=== PATIENT | male | born 1985 | race American Indian/Alaskan Native ===

== ENCOUNTER → 2020-01-11 | Outpatient (CLI) | payer OTHER ==
--- NOTE | 2020-01-13 12:03 | MR ---
EXAMINATION TYPE: MR knee LT wo con DATE OF EXAM: 01/11/2020 COMPARISON: NONE HISTORY: Lt knee pain, Hx of multiple injuries over the years per prescription. Pain locking and swel ling in both knees for 2.5 months per patient. TECHNIQUE: Multiplanar, multisequence images of the knee is performed without IV contrast. FINDINGS: MEDIAL MENISCUS: Anterior horn is intact without tear. Oblique increased signal posterior horn extend s to inferior articular surface. LATERAL MENISCUS: Anterior and posterior horns are intact without tear. CRUCIATE LIGAMENTS: The anterior and posterior cruciate ligaments are intact and unremarkable. COLLATERAL LIGAMENTS: The medial collateral ligament and lateral collateral ligament complex are inta ct and unremarkable. EXTENSOR MECHANISM: Visualized quadriceps and patellar tendons are intact. EFFUSION: Small suprapatellar joint effusion. POPLITEAL CYST: No popliteal/gonzales cyst. TRICOMPARTMENT SPACES: Tricompartment joint space is fairly well-maintained. No significant spurring is seen. CARTILAGE: Tricompartment articular cartilage is preserved. BONE MARROW SIGNAL: No focal abnormal marrow signal is appreciated. OTHER: No additional significant abnormality is appreciated. IMPRESSION: 1. Full-thickness tear posterior horn medial meniscus. 2. Mild tricompartment degenerative changes as detailed above. 3. Small suprapatellar joint effusion.
== END | disposition home or self-care (01) ==
LOC: RADMRIMAIN 16:23
PROVIDERS: ATTEND Physician Assistant
DX: S83.242A Other tear of medial meniscus, current injury, left knee, initial encounter (principal); M17.12 Unilateral primary osteoarthritis, left knee

== ENCOUNTER → 2020-03-13 | Outpatient (CLI) | payer OTHER ==
[2020-03-13 11:35] LABS: Basophils # (A) 0.1 k/uL (0-0.2); Basophils % (A) 1 %; Eosinophils # (A) 0.2 k/uL (0-0.7); Eosinophils % (A) 3 %; HCT 45.8 % (39.0-53.0); HGB 14.9 gm/dL (13.0-17.5); Lymphocytes # (A) 1.6 k/uL (1.0-4.8); Lymphocytes % (A) 31 %; MCH 30.2 pg (25.0-35.0); MCHC 32.5 g/dL (31.0-37.0); MCV 92.7 fL (80.0-100.0); Mean Platelet Volume 7.1; Monocytes # (A) 0.4 k/uL (0-1.0); Monocytes % (A) 8 %; Neutrophils # (A) 2.8 k/uL (1.3-7.7); Neutrophils % (A) 56 %; Platelet Count 293 k/uL (150-450); RBC 4.95 m/uL (4.30-5.90); RDW 12.6 % (11.5-15.5); WBC 5.1 k/uL (3.8-10.6)
[2020-03-13 11:53] LABS: Potassium 4.6 mmol/L (3.5-5.1)
== END | disposition home or self-care (01) ==
LOC: LABPAT 10:09
PROVIDERS: ATTEND Orthopaedic Surgery
DX: Z01.818 Encounter for other preprocedural examination (principal); M23.92 Unspecified internal derangement of left knee
CPT/HCPCS: 36415; 80051; 85025

== ENCOUNTER 2020-03-21 07:30 | Day surgery (SDC) | payer OTHER ==
[2020-03-19 14:07] VITALS: BMI 22.4
--- NOTE | 2020-03-20 09:22 | HP ---
HISTORY AND PHYSICAL CHIEF COMPLAINT: Left knee pain. 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 He twisted his knee and felt a pop. He has had pain and swelling ever since. He notes his knee gives out on him. He has tried anti- inflammatories without much relief. He notes it limits him daily. PAST MEDICAL HISTORY: Significant for anxiety/depression, PTSD. PAST SURGICAL HISTORY: Significant for right shoulder surgery. CURRENT MEDICATIONS: Adderall, hydroxyzine and [place]. He denies drug allergies. FAMILY HISTORY: Significant for cancer. SOCIAL HISTORY: Significant for half pack per day tobacco use. 16 POINT REVIEW OF SYSTEMS: Otherwise reviewed and is noncontributory. PHYSICAL EXAMINATION: On examination, the patient is approximately 6 foot 1, 165 pounds of mesomorphic habitus. HEENT exam is nonfocal. NECK: Supple He has painless passive motion of his left hip. Straight leg raise is negative. Active motion left knee -10 to 125 degrees of flexion. He has a trace effusion. He is tender about the medial joint line and medial patellar facet. Collaterals are stable, Hanna is negative, Erick's elicits medial pain. His distal neurovascular exam appears intact in the left lower extremity. MRI report 01/11/2020 of the left knee shows a posterior medial meniscal tear. IMPRESSION: Internal derangement, left knee with symptomatic medial meniscal tear. RECOMMENDATION: I talked to the patient at length regarding his condition along with treatment options. He notes significant pain and mechanical symptoms after this acute injury. After thorough discussion, he opts to proceed with surgery. We will plan to proceed with arthroscopic evaluation with probable partial medial meniscectomy. We will likely perform that as an outpatient procedure. Risks and benefits were discussed at length in layman's terms. MMODL / IJN: [id number] /
[~2020-03-21 07:30] MED LIST: DEXAMETHASONE SOD PHOSPHATE 10 MG/ML 1 ML VIAL IV ONE; LIDOCAINE 1% (10MG/ML) FOR IV START INTRADERMA PRN; MIDAZOLAM 2 MG/2 ML VIAL IV PRN; ONDANSETRON 4 MG/2 ML VIAL IVP ONE
[2020-03-21] MEDS: LACTATED RINGERS 1,000 ML IV SCH ×2 (08:34→09:19)
[2020-03-21] MEDS ORDERED: FLUMAZENIL 0.1 MG/ML 5 ML VIAL IVP ONE (09:16)
[2020-03-21] MEDS ORDERED: MIDAZOLAM 2 MG/2 ML VIAL ONE (09:16)
[2020-03-21] MEDS ORDERED: LIDOCAINE 1% INJ 10MG/ML (20 ML MDV) ONE (09:16)
[2020-03-21] MEDS ORDERED: KETOROLAC 15 MG/ML 1 ML VIAL ONE (09:16)
[2020-03-21] MEDS ORDERED: fentaNYL (PF) 50 MCG/ML 2 ML AMP ONE (09:16)
[2020-03-21] MEDS ORDERED: PROPOFOL 10 MG/ML 20 ML VIAL IV ONE (09:16)
--- NOTE | 2020-03-21 09:57 | P.OP ---
Date of Procedure: 03/21/20 Preoperative Diagnosis: Internal derangement left knee Postoperative Diagnosis: Left knee posterior medial meniscal tear/large patellofemoral plica Procedure(s) Performed: Left knee arthroscopic partial medial meniscectomy/plica resection Anesthesia: BALDO Surgeon: David Peters Estimated Blood Loss (ml): 10 Pathology: none sent Condition: stable Disposition: PACU Indications for Procedure: The patient's a 35-year-old male presents with progressive left knee pain and mechanical symptoms after a previous twisting injury despite conservative treatment. A discussion of the risks and benefits of operative intervention versus continued conservative measures was made with patient. He opted proceed with surgery. Operative risks to include infection, neurovascular injury, development of blood clots, possible incomplete resolution of symptoms, possible worsening symptoms and need for subsequent procedures was discussed. Informed consent was obtained. Operative Findings: As below Description of Procedure: The patient was brought to the operating room, and after induction of general anesthesia examined the left knee. Collaterals were stable, Hanna was negative, and posterior drawer was negative. The left lower extremity was prepped and draped in a normal fashion. A superior lateral portal was made through a 3 mm skin incision superior and lateral to the patella. This was used for outflow. A lateral portal was made through a 5 mm vertical skin incision lateral to the patella tendon above the joint line. Diagnostic arthroscopy was performed. On inspection of the medial compartment, a small oblique tear involving the posterior most aspect the medial meniscus was noted in the white- white junction. This was debrided back to stable base with straight baskets and a motorized shaver. The remaining medial meniscus was stable and intact. On inspection of the notch, the anterior cruciate ligament appeared to be intact. On inspection of the lateral compartment, no significant cartilage or meniscal pathology was noted. On inspection of the patellofemoral articulation, there was a large medial patellofemoral plica that impinged. This was debrided with a motorized shaver.. The gutters were clear debris. The knee was then thoroughly irrigated. The portals were closed with Steri-Strips. A sterile dressing was applied in addition to a compression stocking. The patient was awoken from general anesthesia and transferred to recovery room in good condition. Blood loss was estimated at 10 mL. No complications were incurred.
[2020-03-21 10:15] VITALS: TEMP 96.8
[2020-03-21 11:22] VITALS: BP 125/80; PULSE 80; RESP 16
== END 2020-03-21 11:37 | disposition home or self-care (01) ==
LOC: OR 07:30
PROVIDERS: ATTEND Orthopaedic Surgery
DX: S83.242A Other tear of medial meniscus, current injury, left knee, initial encounter (principal); M67.52 Plica syndrome, left knee; F41.9 Anxiety disorder, unspecified; F32.9 Major depressive disorder, single episode, unspecified; F43.10 Post-traumatic stress disorder, unspecified; F17.210 Nicotine dependence, cigarettes, uncomplicated; I10 Essential (primary) hypertension; F90.9 Attention-deficit hyperactivity disorder, unspecified type; Z98.890 Other specified postprocedural states; Z79.899 Other long term (current) drug therapy; Z79.891 Long term (current) use of opiate analgesic; Z79.1 Long term (current) use of non-steroidal anti-inflammatories (NSAID); Z80.9 Family history of malignant neoplasm, unspecified; X50.1XXA Overexertion from prolonged static or awkward postures, initial encounter
CPT/HCPCS: 29881; J2250; J0690; J2001; J3010; J1885; J2704

== ENCOUNTER 2020-12-03 09:49 | Emergency (ER) | payer OTHER ==
[2020-12-03 09:53] VITALS: BP 126/83; PULSE 79; RESP 20; TEMP 97.6
--- NOTE | 2020-12-03 10:32 | ED ---
Upper Extremity HPI - General Chief Complaint: Extremity Injury, Upper Stated Complaint: L shoulder pain Time Seen by Provider: 12/03/20 10:02 Source: patient Mode of arrival: ambulatory Limitations: no limitations - History of Present Illness Initial Comments: Patient is a 35-year-old male presenting to the emergency Department with complaints of left shoulder pain for the past 4 days. Patient states that on Tuesday, he bent over to lemon picker his daughter and felt a pop in his left shoulder. He states he has been unable to lift up his shoulder much since then. He denies any previous surgeries or injuries to his left shoulder. He has left-hand dominant but does a lot of the things with his right hand. He denies any other falls or trauma. He has no further complaints at this time. - Related Data Home Medications Medication Instructions Recorded Confirmed DULoxetine HCL [Cymbalta] 30 mg PO DAILY 03/19/20 03/21/20 Dextroamphetamine/Amphetamine 20 mg PO DAILY 03/19/20 03/21/20 [Adderall] Ibuprofen 400 mg PO Q8H 03/19/20 03/21/20 Allergies Allergy/AdvReac Type Severity Reaction Status Date / Time No Known Allergies Allergy Verified 12/03/20 09:53 Review of Systems ROS Statement: Those systems with pertinent positive or pertinent negative responses have been documented in the HPI. ROS Other: All systems not noted in ROS Statement are negative. Past Medical History Past Medical History: No Reported History History of Any Multi-Drug Resistant Organisms: None Reported Past Surgical History: Joint Replacement, Orthopedic Surgery Past Psychological History: No Psychological Hx Reported Smoking Status: Current every day smoker Past Alcohol Use History: None Reported Past Drug Use History: None Reported General Exam - General Exam Comments Initial Comments: GENERAL: Patient is well-developed and well-nourished. Patient is nontoxic and in no acute distress. HEAD: Atraumatic, normocephalic. EYES: Pupils equal round and reactive to light, extraocular movements intact, sclera anicteric, conjunctiva are normal. Eyelids were unremarkable. NECK: Normal range of motion, supple without lymphadenopathy or JVD. LUNGS: Unlabored respirations. Breath sounds clear to auscultation bilaterally and equal. No wheezes rales or rhonchi. HEART: Regular rate and rhythm without murmurs, rubs or gallops. ABDOMEN: Soft, nontender, normoactive bowel sounds. No guarding, no rebound. No masses appreciated. MUSCULOSKELETAL: Patient has pain with palpation of the anterior and superior portion of the left shoulder, distal end of clavicle seems to be resting higher, possible AC joint separation. 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 Painful active range of motion in all directions. No swelling. No clubbing or cyanosis. NEUROLOGICAL: Patient is alert and oriented x 3. SKIN: Warm, Dry, normal turgor, no rashes or lesions noted. Limitations: no limitations Course Vital Signs 12/03/20 09:50 Temperature 97.6 F Pulse Rate 79 Respiratory 20 Rate Blood Pressure 126/83 O2 Sat by Pulse 100 Oximetry Medical Decision Making - Medical Decision Making Patient is a 35-year-old male here with left shoulder pain for the past 4 days after picking up his daughter. On exam, distal end of the clavicle seems raised, possible AC joint separation. X-rays reveal no acute fracture dislocation, possible grade 2 AC separation. He'll be given a sling for comfort and will follow up with orthopedics. He states [facility]. He is requesting pain medicine as ibuprofen has not been working. After checking patient's MAPS, he filled a prescription for [place] yesterday for 9 tablets, I stated I would not give him any more at this point. He can follow up with orthopedics. He is in agreement with this plan of care and is stable for discharge. Case discussed with Dr. Mccollum. Disposition Clinical Impression: Injury of left acromioclavicular joint Disposition: HOME SELF-CARE Condition: Stable Instructions (If sedation given, give patient instructions): Acromioclavicular Separation (ED) Additional Instructions: Please return to the Emergency Department if symptoms worsen or any other concerns. Recommend wearing sling for comfort and support. Alternate between Tylenol and Motrin for pain control. Also recommend icing the area. Follow up with orthopedics as discussed. Is patient prescribed a controlled substance at d/c from ED?: No Referrals: [facility],Clinic [Primary Care Provider] - 1-2 days David Peters MD [STAFF PHYSICIAN] - 1-2 days Time of Disposition: 11:32
--- NOTE | 2020-12-03 11:06 | XR ---
EXAMINATION TYPE: XR shoulder complete LT DATE OF EXAM: 12/03/2020 CLINICAL HISTORY: pain COMPARISON: NONE TECHNIQUE: Three views of the left shoulder are obtained. FINDINGS: There is no acute fracture/dislocation evident of the glenohumeral joint. There is mild el evation of the distal clavicle relative to the acromion which could reflect a type II separation. Cor relate clinically. The visualized ribs are intact and unremarkable. IMPRESSION: 1. There is mild elevation of the distal clavicle relative to the acromion which could reflect a type II separation. Correlate clinically.
== END 2020-12-03 11:38 | disposition home or self-care (01) ==
LOC: EC 09:49
DX: S49.92XA Unspecified injury of left shoulder and upper arm, initial encounter (principal); F17.200 Nicotine dependence, unspecified, uncomplicated; Z79.1 Long term (current) use of non-steroidal anti-inflammatories (NSAID); X50.0XXA Overexertion from strenuous movement or load, initial encounter
CPT/HCPCS: 99283

== ENCOUNTER → 2020-12-19 | Outpatient (CLI) | payer OTHER ==
--- NOTE | 2020-12-20 05:21 | MR ---
EXAMINATION TYPE: MR shoulder LT wo con DATE OF EXAM: 12/19/2020 COMPARISON: HISTORY: Left shoulder pain, hard to raise up above head. 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 Multiplanar multiecho imaging of the right shoulder without contrast. FINDINGS: Subscapularis tendon is intact. The biceps tendon is intact. The glenoid roberth appear normal. There i s some hypertrophic mild spurring at the AC joint. There is some bone edema on both sides of the AC j oint. There is no significant subacromial impingement. The supraspinatus tendon appears intact. There is small amount of fluid anteriorly around the subscapularis tendon. There is no evidence of a soft tissue mass. I see no bony destructive process. There is no evidence of a fracture. IMPRESSION: No evidence of rotator cuff tear. There is some mild increased fluid anteriorly that could be some no nspecific synovitis. There is hypertrophic mild spurring and edema at the AC joint. No fracture seen.
== END | disposition home or self-care (01) ==
LOC: RADMRIMAIN 18:55
PROVIDERS: ATTEND Orthopaedic Surgery
DX: M25.712 Osteophyte, left shoulder (principal); R60.0 Localized edema

== ENCOUNTER 2021-01-28 11:18 | Day surgery (SDC) | payer OTHER ==
[2021-01-21 15:12] VITALS: BMI 23.1
--- NOTE | 2021-01-28 10:43 | HP ---
HISTORY AND PHYSICAL CHIEF COMPLAINT: Left shoulder pain. 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 He notes he felt a pop in his shoulder about a month ago. He is having difficulty with any attempted overhead use and at night. He has tried previous therapy in addition to medications, without significant relief. He notes significant daily pain that limits him. PAST MEDICAL HISTORY: Significant for depression and PTSD. PAST SURGICAL HISTORY: Significant for right shoulder arthroscopy. CURRENT MEDICATIONS: Adderall, duloxetine, [place] and Tylenol. ALLERGIES: HE DENIES DRUG ALLERGIES. FAMILY HISTORY: Significant for cancer. SOCIAL HISTORY: Significant for current tobacco use in addition to social alcohol use. REVIEW OF SYSTEMS: Sixteen-point review of systems is otherwise reviewed and noncontributory. PHYSICAL EXAMINATION: On examination, the patient is approximately 6 feet 1 inch, 165 pounds of mesomorphic habitus. HEENT exam is nonfocal. Neck is supple. Active motion of left shoulder: Forward elevation 135 degrees. External rotation of the arm at the side 50 degrees, internal rotation to L3. He is tender over the anterior subacromial space and the acromioclavicular joint. He has mild subacromial crepitus. Motor strength is 5 minus over 5 for abduction and external rotation. Impingement test and Neer test are positive. Speed test is positive. Cross-body adduction is positive. His distal neurovascular exam appears intact in the left upper extremity. MRI report of left shoulder shows evidence of nonspecific synovitis of the glenohumeral joint and degenerative changes of the acromioclavicular joint. No definite full- thickness rotator cuff tear is noted. IMPRESSION: 1. Left shoulder impingement with rotator cuff tendinitis, possible partial-thickness tear. 2. History of grade 2 left acromioclavicular sprain. RECOMMENDATIONS: I talked to the patient at length regarding his condition along with treatment options. At this point he is quite symptomatic and limited because of pain despite previous conservative measures. After thorough discussion, he opted to proceed with surgery. We will plan to proceed with arthroscopic evaluation, probable subacromial decompression of his left shoulder. We will also evaluate the integrity of the rotator cuff. We will likely perform that as an outpatient procedure. Risks and benefits were discussed at length in layman's terms. MMODL / IJN: [id number] /
[~2021-01-28 11:18] MED LIST changes: -DEXAMETHASONE SOD PHOSPHATE 10 MG/ML 1 ML VIAL IV ONE; +DEXAMETHASONE SOD PHOSPHATE 4 MG/ML 1 ML VIAL IV ONE; +HYDROmorphone 0.5 MG/0.5 ML SYRINGE IVP PRN; +LACTATED RINGERS 1,000 ML IV SCH
[2021-01-28] MEDS ORDERED: MIDAZOLAM 2 MG/2 ML VIAL IV ONE (12:49)
--- NOTE | 2021-01-28 13:09 | P.ANPRN ---
Procedure Note - Anesthesia - Nerve Block Performed Left Interscalene Time Out Performed: Yes (12:49) Date of Procedure: 01/28/21 Procedure Start Time: :49 Procedure Stop Time: 13:01 Location of Patient: PreOp Indication: Acute Post-Operative Pain, Requested by Surgeon (Dr Peters) Sedation Type: Sedate with meaningful contact maintained Preparation: Sterile Prep Position: Supine Catheter: None Needle Types: Pajunk Needle Gauge: Other (see comment) (22g) Ultrasound used to visualize needle placement: Yes Ultrasound used to observe medication spread: Yes Injectate: 0.5% Ropivacaine (see comment for volume) (20cc + Decadron 4mg) Blood Aspirated: No Pain Paresthesia on Injection Noted: No Resistance on Injection: Normal Image Stored and Saved: Yes Events: Uneventful and Well Tolerated
[2021-01-28] MEDS ORDERED: LIDOCAINE 1% INJ 10MG/ML (20 ML MDV) ONE (13:20)
[2021-01-28] MEDS ORDERED: ROPIVACAINE 5 MG/ML 30 ML VIAL ONE (13:20)
[2021-01-28] MEDS ORDERED: GLYCOPYRROLATE 0.2 MG/ML 2 ML VIAL ONE (13:20)
[2021-01-28] MEDS ORDERED: DEXAMETHASONE SOD PHOSPHATE 4 MG/ML 1 ML VIAL ONE (13:20)
[2021-01-28] MEDS ORDERED: PHENYLEPHRINE-0.9% NACL SYG 1,000 MCG/10 ML SYRINGE ONE (13:20)
[2021-01-28] MEDS ORDERED: fentaNYL (PF) 50 MCG/ML 2 ML AMP ONE (13:20)
[2021-01-28] MEDS ORDERED: NEOSTIGMINE 1 MG/ML 10 ML VIAL ONE (13:20)
[2021-01-28] MEDS ORDERED: PROPOFOL 10 MG/ML 20 ML VIAL IV ONE (13:20)
[2021-01-28] MEDS ORDERED: ROCURONIUM 10 MG/ML (5 ML VIAL) IV ONE (13:20)
[2021-01-28] MEDS ORDERED: MIDAZOLAM 2 MG/2 ML VIAL ONE (13:20)
[2021-01-28] MEDS ORDERED: SUCCINYLCHOLINE CHLORIDE 100 MG/5 ML SYR IV ONE (13:20)
[2021-01-28] MEDS ORDERED: EPINEPHrine (PF) 1 ML in SODIUM CHLORIDE 0.9% IRRIGATIO 3,000 ML IRRIGATION ONE ×8 (13:40)
[2021-01-28] MEDS ORDERED: LACTATED RINGERS 1,000 ML IV ONE (14:23)
--- NOTE | 2021-01-28 14:50 | P.OP ---
Date of Procedure: 01/28/21 Preoperative Diagnosis: Left shoulder impingement/acromioclavicular joint arthritis Postoperative Diagnosis: Same in addition to partial thickness tear bursal surface rotator cuff Procedure(s) Performed: Left shoulder arthroscopic subacromial decompression/rotator cuff debridement/distal clavicular resection Anesthesia: mathieu BLAND Surgeon: David Peters Brim Flexer #1: Orville Olguin Estimated Blood Loss (ml): 10 Pathology: none sent Condition: stable Disposition: PACU Indications for Procedure: The patient's 36-year-old gentleman who presents with progressive left shoulder pain despite conservative measures. A discussion of the risks and benefits of operative intervention versus continued conservative measures made with patient. He opted to proceed with surgery. Operative risks to include infection, neurovascular injury, development of blood clots, possible incomplete resolution of symptoms, possible worsening symptoms and need for subsequent procedures was discussed. Informed consent was obtained. Operative Findings: As below Description of Procedure: The patient was brought to the operating room, and after induction of general anesthesia was placed in a beachchair position. A preoperative interscalene block was placed for postoperative analgesia. I examined the left shoulder. There was no gross block to passive motion or gross glenohumeral instability. The left upper extremity was prepped and draped in normal fashion. The bony outlines the acromion, distal clavicle, and coracoid process were outlined with a skin marker. The glenohumeral joint was inflated with 50 mL of saline utilizing a spinal needle from posterior approach. A posterior portal was made through a 5 mm skin incision 1 cm medial and inferior to the posterior lateral border time. A blunt trocar was used to easily into the joint. Diagnostic arthroscopy was performed. An anterior portal was made just lateral to the coracoid process entering the joint above the subscapularis tendon. The subs capularis tendon appeared to be intact. Anterior labrum was intact. The inferior recess was inspected. The posterior labrum was intact. The biceps and its anchor were intact. On inspection the rotator cuff, it was intact on the articular surface. A lateral portal was made 2 centimeters inferior to the anterior lateral border of the acromion. The soft tissue on the undersurface of the acromion was debrided with a motorized shaver and electrocautery clearly defining the anterior medial and lateral borders as well as the distal clavicle. An anterior inferior acromioplasty was performed with a motorized clair starting anterolateral, then extending this posteriorly, then extending this medially. I converted to a flat acromion and this was verified in the posterior and lateral viewing portals. There were degenerative changes involving the acromioclavicular joint with some subacromial impingement from the distal clavicle. The distal 4 mm of the clavicle was resected with a motorized bur. Attention was then paid towards the rotator cuff. There was significant bursal thickening that was debrided with a motorized shaver. A partial thickness tear of the supraspinatus on the bursal surface was noted measuring 3 x 4 mm in depth. This debrided back to stable base with a motorized shaver. The remaining rotator cuff was intact and stable. The arthroscope was then removed. The portals were closed with simple 3-0 nylon sutures. A sterile dressing was applied in addition to a sling. The patient was then awoken from general anesthesia and transferred to recovery room in good condition. Blood loss was estimated at 10 mL. No complications were incurred. Sponge and needle counts were correct in the case. Orville RUEDA assisted and the major components of the case to include arm positioning, decompression, and distal clavicular resection.
[2021-01-28 15:04] VITALS: TEMP 97.2
[2021-01-28 15:57] VITALS: BP 117/71; PULSE 75; RESP 16
== END 2021-01-28 16:20 | disposition home or self-care (01) ==
LOC: OR 11:18
PROVIDERS: ATTEND Orthopaedic Surgery
DX: M25.812 Other specified joint disorders, left shoulder (principal); M19.012 Primary osteoarthritis, left shoulder; M75.102 Unspecified rotator cuff tear or rupture of left shoulder, not specified as traumatic; I10 Essential (primary) hypertension; F17.210 Nicotine dependence, cigarettes, uncomplicated; F41.9 Anxiety disorder, unspecified; F32.9 Major depressive disorder, single episode, unspecified; Z79.899 Other long term (current) drug therapy
CPT/HCPCS: 64415; 76942; 29824; 29826; 29827; J2250; J1100; J2710; J0690; J2405; J0171; J2001; J3010; J2795; J2370; J0330; J2704

== ENCOUNTER → 2021-06-30 | Outpatient (CLI) | payer OTHER ==
--- NOTE | 2021-06-30 11:20 | MR ---
EXAMINATION TYPE: MR brain wo/w con DATE OF EXAM: 06/30/2021 COMPARISON: None HISTORY: Amnesia, Memory loss, speech impediment, left sided hearing loss. Hx TBI, concusion. TECHNIQUE: Multiplanar, multisequence images of the brain and brainstem is performed without and with IV contras t, utilizing 7.5 mL intravenous Gadavist . FINDINGS: Diffusion weighted images demonstrate no evidence of a recent infarct or other diffusion ab normality. There is no extra-axial fluid collection or significant white matter signal abnormality. The ventricular system and cisternal spaces are normal in size and appearance. The brain volume is age appropriate. Midline structures demonstrate normal morphology. The cerebellar tonsils are seen at the level of fo ramen magnum. No tonsillar beaking.. Post contrast images demonstrate no abnormal enhancement. The d ural venous sinuses appear patent. The visualized sinuses are clear and the globes are intact. IMPRESSION: 1. No acute process. 2. Cerebellar tonsils are low-lying in position at the level of foramen magnum. No tonsillar beaking
== END | disposition home or self-care (01) ==
LOC: RADMRIMAIN 09:41
PROVIDERS: ATTEND Physician Assistant
DX: G93.5 Compression of brain (principal)
CPT/HCPCS: 70553; A9585

== ENCOUNTER → 2022-06-11 | Outpatient (CLI) | payer OTHER ==
--- NOTE | 2022-06-13 19:46 | MR ---
EXAMINATION TYPE: MR shoulder RT wo con DATE OF EXAM: 06/11/2022 COMPARISON: Radiograph 05/31/2022 HISTORY: 37-year-old male M25.511, Rt shoulder pain TECHNIQUE: Multiplanar, multisequence imaging of the right shoulder is performed without contrast. FINDINGS: Correlate for prior tenodesis along the anterior aspect of the proximal humeral shaft. The long biceps tendon is not well delineated. The subscapularis tendon shows mild inhomogeneous signal at its insertion but is otherwise intact. Diffuse heterogeneity of both supraspinatus and infraspinatus tendons with some areas of bursal sided fraying. There is bursal sided tear of the anterior supraspinatus tendon fibers with associated ganglion cyst formation spanning 3.3 cm long and 1.2 cm AP. This tear involves just over half of the tendon thickne ss. Extraneous tendon appears grossly intact. There is some fluid within the subacromial/subdeltoid bursa extending to the lateral deltoid shelf. There is moderate irregular cartilage loss throughout the superior humeral head articular surface and mildly irregular cartilage loss elsewhere throughout the glenohumeral joint. There is undercutting at the superior labral chondral junction which may correspond to a large sublab ral foramen and. On axial series, there appears to be separation of the anterior superior labrum from the glenoid in this structure just anterior to this which seems to correspond to the middle glenohum eral ligament. There are suture anchors along both anterior and posterior glenoid. The posterior labrum is very irre gular and degenerative. Small joint effusion. There is some synovial thickening within the superior s ubscapularis recess. Mild degenerative change at the AC joint. No significant encroachment onto the underlying cuff. Mild edema within the teres minor muscle belly. Otherwise, minimal fatty streaks noted within the inf raspinatus muscle belly. No Hill-Sachs deformity or os acromiale. Patchy red marrow is present to be seen in setting of anemia, obesity, smoking, chronic disease. IMPRESSION: 1. Old suture anchors within both anterior and posterior glenoid. Suspect variant anatomy with a subl abral foramen. Unable to exclude separation of the anterior superior labrum. This is favored over a B uford complex as a separate, mildly thickened middle glenohumeral ligament is noted just adjacent. Cl inically correlate. 2. The posterior glenoid labrum is irregular and degenerative. 3. [id number] glenohumeral joint OA with the greatest degree of irregular cartilage loss along the superior humeral head surface. 4. Diffuse rotator cuff tendinosis. There is a bursal sided tear of the anterior supraspinatus tendon fibers with associated ganglion cyst formation measuring 3.3 cm long and 1.2 cm AP. The tear involve s just over half of the tendon thickness. 5. Query previous tenodesis of the long head biceps tendon at the level of the proximal humeral shaft . 6. Mild edema within the teres minor muscle belly. Findings may be idiopathic or could reflect debora lateral space syndrome.
== END | disposition home or self-care (01) ==
LOC: RADMRIMAIN 13:13
PROVIDERS: ATTEND Orthopaedic Surgery
DX: M19.011 Primary osteoarthritis, right shoulder (principal); M67.411 Ganglion, right shoulder; M75.111 Incomplete rotator cuff tear or rupture of right shoulder, not specified as traumatic; R60.0 Localized edema

== ENCOUNTER → 2022-08-06 | Outpatient (CLI) | payer OTHER ==
[2022-08-06 18:42] LABS: Basophils # (A) 0.09 X 10*3/uL (0.00-0.10); Basophils % (A) 1.5 %; Eosinophils # (A) 0.29 X 10*3/uL (0.04-0.35); Eosinophils % (A) 4.8 %; HGB 14.9 g/dL (13.0-17.0); Immature Grans, Automated 0.2 %; Lymphocytes # (A) 1.91 X 10*3/uL (0.90-5.00); Lymphocytes % (A) 31.4 %; MCH 29.5 pg (27.0-32.0); MCHC 32.4 g/dL (32.0-37.0); MCV 91.1 fL (80.0-97.0); Mean Platelet Volume 9.9 fL (9.5-12.2); Monocytes # (A) 0.74 X 10*3/uL (0.20-1.00); Monocytes % (A) 12.2 %; NRBC Per 100 WBC 0 /100 WBCS (0.0-0.0); Neutrophils # (A) 3.04 X 10*3/uL (1.80-7.70); Neutrophils % (A) 49.9 %; Platelet Count 329 X 10*3/uL (140-440); RBC 5.05 X 10*6/uL (4.40-5.60); RDW 12.6 % (11.5-14.5); WBC 6.08 X 10*3/uL (4.50-10.00)
[2022-08-06 19:15] LABS: African American GFR (CKD) 133.2 (60.0-200.0); Anion Gap 15.1 mmol/L (10.00-18.00); Calcium 9.6 mg/dL (8.7-10.3); Carbon Dioxide 22.9 mmol/L (20.0-27.5); Non-African American GFR(CKD) 114.9 (60.0-200.0); Potassium 4.3 mmol/L (3.5-5.5)
== END | disposition home or self-care (01) ==
LOC: LABPAT 12:29
PROVIDERS: ATTEND Orthopaedic Surgery
DX: Z01.812 Encounter for preprocedural laboratory examination (principal); M75.41 Impingement syndrome of right shoulder
CPT/HCPCS: 80048; 85025

== ENCOUNTER 2022-08-20 07:14 | Day surgery (SDC) | payer OTHER ==
--- NOTE | 2022-08-19 08:25 | P.HPOR ---
History of Present Illness H&P Date: 08/19/22 Chief Complaint: Right shoulder pain The patient is a 37-year-old male who presents with right shoulder pain for the past 4-5 months. He's having pain with overhead activity and at night. He's tried conservative measures including medications in addition to activity modifications and home exercises. He notes daily pain limits him. Review of Systems As per HPI Past Medical History Past Medical History: Hypertension Additional Past Medical History / Comment(s): hx kidney stones tinnitis History of Any Multi-Drug Resistant Organisms: None Reported Past Surgical History: Orthopedic Surgery Additional Past Surgical History / Comment(s): Multiple right shoulder surgeries, left knee arthroscopy, Past Anesthesia/Blood Transfusion Reactions: No Reported Reaction Additional Past Anesthesia/Blood Transfusion Reaction / Comment(s): no blood tx Smoking Status: Current every day smoker - Past Family History Father Family Medical History: Cancer Medications and Allergies Home Medications Medication Instructions Recorded Confirmed Type Dextroamphetamine/Amphetamine 20 mg PO DAILY 03/19/20 08/17/22 History [Adderall] Acetaminophen [Tylenol Arthritis] 650 - 1,300 mg PO BID 01/21/21 08/17/22 History Duloxetine (Unknown Dose) 1 tab PO BID 01/21/21 08/17/22 History HYDROcodone/APAP 5-325MG [[place] 1 tab PO Q6HR PRN #28 tab 01/28/21 08/17/22 Rx 5-325] Allergies Allergy/AdvReac Type Severity Reaction Status Date / Time No Known Allergies Allergy Verified 08/17/22 11:38 Physical Examination - Shoulder right Tenderness with palpation: anterior Pain: with forward flexion ROM: forward flexion: 140 degrees ROM: internal rotation: lower lumbar ROM: external rotation: 60 degrees Strength: abduction: 4/5 Strength: external rotation: 5/5 Tests: internal impingement tests: positive, external impingment tests: positive Results The patient is a well-developed well-nourished male approximately 6 foot 1, 170 pounds of mesomorphic habits. HEENT exam is nonfocal, neck supple. He's tender about the right shoulder anterior subacromial space. He has moderate subacromial crepitus. His distal neurovascular exam appears intact in the right upper extremity. - Diagnostic results Shoulder MRI: image reviewed (Right shoulder MRI is reviewed and shows evidence of a bursal surface tear involving the supraspinatus along with previous biceps tenodesis. Glenohumeral joint degenerative changes are noted.) Assessment and Plan Assessment: Right shoulder impingement/recurrent rotator cuff tear Plan: I talked to the patient regarding his condition along with treatment options. At this point is quite symptomatic despite conservative measures. After thorough discussion proceed with surgery. We will plan to proceed with arthroscopic evaluation of the right shoulder with possible rotator cuff debridement versus repair in addition to revision subacromial decompression. Risks and benefits were discussed at length in layman's terms. We will likely perform as an outpatient procedure.
[~2022-08-20 07:14] MED LIST changes: +METOCLOPRAMIDE 5 MG/ML 2 ML VIAL IVP PRN; -MIDAZOLAM 2 MG/2 ML VIAL IV PRN
[2022-08-20] MEDS ORDERED: MIDAZOLAM 2 MG/2 ML VIAL IVP ONE (08:25)
[2022-08-20] MEDS ORDERED: fentaNYL (PF) 50 MCG/ML 2 ML AMP ONE (09:21)
[2022-08-20] MEDS ORDERED: ROPIVACAINE 5 MG/ML 30 ML VIAL ONE (09:21)
[2022-08-20] MEDS ORDERED: PROPOFOL 10 MG/ML 20 ML VIAL IV ONE (09:21)
[2022-08-20] MEDS ORDERED: LIDOCAINE 2% INJ 20 MG/ML (2 ML VIAL) ONE (09:21)
[2022-08-20] MEDS ORDERED: DEXAMETHASONE SOD PHOSPHATE 4 MG/ML 1 ML VIAL ONE (09:21)
[2022-08-20] MEDS ORDERED: NEOSTIGMINE 1 MG/ML 10 ML VIAL ONE (09:21)
[2022-08-20] MEDS ORDERED: SUCCINYLCHOLINE CHLORIDE 200 MG/10 ML VIAL IV ONE (09:21)
[2022-08-20] MEDS ORDERED: ROCURONIUM 10 MG/ML (5 ML VIAL) IV ONE (09:21)
[2022-08-20] MEDS ORDERED: GLYCOPYRROLATE 0.2 MG/ML 2 ML VIAL ONE (09:21)
[2022-08-20] MEDS ORDERED: EPINEPHrine (PF) 1 ML in SODIUM CHLORIDE 0.9% IRRIGATIO 3,000 ML IRRIGATION ONE ×8 (09:49)
[2022-08-20] MEDS ORDERED: LACTATED RINGERS 1,000 ML IV ONE (10:17)
--- NOTE | 2022-08-20 10:49 | P.OP ---
Date of Procedure: 08/20/22 Preoperative Diagnosis: Right shoulder impingement/rotator cuff tear/acromioclavicular joint arthritis Postoperative Diagnosis: Right full-thickness rotator cuff tear/acromioclavicular joint arthritis/grade 3 chondral injury posterior humeral head Procedure(s) Performed: Right shoulder arthroscopic subacromial decompression/distal clavicular resection/rotator cuff repair/humeral head chondrectomy Implants: Arthrex 4.75 mm swivel lock anchor 2 Anesthesia: BALDO regional Surgeon: David Peters Automatic Edger #1: Orville Olguin Estimated Blood Loss (ml): 10 Pathology: none sent Condition: stable Disposition: PACU Indications for Procedure: The patient is a 37-year-old male who presents with progressive right shoulder pain and mechanical symptoms despite conservative measures. A discussion of the risks and benefits of operative intervention versus continued conservative measures was made with patient. He opted to proceed with surgery. Operative risks to include infection, neurovascular injury, development of blood clots, possible postoperative stiffness, possible tendon rerupture and need for subsequent procedures was discussed. Informed consent was obtained. Operative Findings: As below Description of Procedure: The patient was brought to the operating room, and after induction of general anesthesia was placed in a beachchair position. A preoperative interscalene block was placed for postoperative analgesia. I examined the right shoulder. There was no gross block to passive motion or gross glenohumeral instability. The right upper extremity was prepped and draped in normal fashion. The bony outlines the acromion, distal clavicle, and coracoid process were outlined with a skin marker. The glenohumeral joint was inflated with 50 mL of saline utilizi ng a spinal needle from posterior approach. A posterior portal was made through a 5 mm skin incision 1 cm medial and inferior to the posterior lateral border time. A blunt trocar was used to easily into the joint. Diagnostic arthroscopy was performed. An anterior portal was made just lateral to the coracoid process entering the joint above the subscapularis tendon. The subscapularis tendon ap peared to be intact. Anterior labrum was intact. Grade 2-3 chondral changes were noted diffusely involving humeral head. There was a loose chondral fragment posterior along the superior aspect the humeral head was debrided back to stable base with a motorized shaver. The inferior recess was inspected. The posterior labrum was inspected and had a degenerative tear. The biceps was previously tenotomized. On inspection the rotator cuff, a full-thickness tear involving the anterior aspect the supraspinatus was noted. The posterior portion of the rotator cuff appeared to be intact. A lateral portal was made 2 centimeters inferior to the anterior lateral border of the acromion. The rotator cuff was inspected and its edges were debrided with a motorized shaver. This was then easily brought back to the greater tuberosity. The soft tissue on the undersurface of the acromion was debrided with a motorized shaver and electrocautery clearly defining the anterior medial and lateral borders as well as the distal clavicle. An anterior inferior acromioplasty was performed with a motorized clair starting anterolateral, then extending this posteriorly, then extending this medially. I converted to a flat acromion and this was verified in the posterior and lateral viewing portals. There was significant acromioclavicular joint arthritis with subacromial impingement and therefore the distal 4 mm of the clavicle was resected with a motorized bur. The greater tuberosity was lightly decorticating with a shaver down to a bleeding bony surface. An accessory superior lateral portal was made just off the lateral edge of the acromion for anchor placement. A 4.75 mm swivel lock anchor preloaded with fiber tapes was then placed just off the articular surface with the appropriate starting awl. Good purchase was obtained. These fiber tapes were then passed the rotator cuff with a scorpion suture passer. A lateral row was created utilizing the fiber tapes. A 4.75 mm swivel lock anchor was placed laterally. Good purchase was obtained. Final arthroscopic view showed adequate compression at the footprint. The arthroscope was then removed. The portals were closed with simple 3-0 nylon sutures. A sterile dressing was applied in addition to a sling. The patient was then awoken from general anesthesia and transferred to recovery room in good condition. Blood loss was estimated at 10 mL. No complications were incurred. Sponge and needle counts were correct in the case. Orville RUEDA assisted and the major components of the case to include arm positioning, anchor placement, and rotator cuff repair.
[2022-08-20 11:09] VITALS: TEMP 96.8
[2022-08-20 11:56] VITALS: PULSE 65; RESP 20
[2022-08-20 12:17] VITALS: BP 130/77
--- NOTE | 2022-08-22 16:22 | P.ANPRN ---
Procedure Note - Anesthesia - Nerve Block Performed Right Interscalene Single Time Out Performed: Yes Date of Procedure: 08/20/22 Procedure Start Time: Procedure Stop Time: Location of Patient: PreOp Indication: Acute Post-Operative Pain, Requested by Surgeon Sedation Type: Sedate with meaningful contact maintained Preparation: Sterile Prep Position: Supine Needle Types: Pajunk Needle Gauge: 21 Ultrasound used to visualize needle placement: Yes Ultrasound used to observe medication spread: Yes Blood Aspirated: No Pain Paresthesia on Injection Noted: No Resistance on Injection: Normal Image Stored and Saved: Yes Events: Uneventful and Well Tolerated (ropi .5% 20cc plus dexamethasone 4mg)
== END 2022-08-20 12:30 | disposition home or self-care (01) ==
LOC: OR 07:14
PROVIDERS: ATTEND Orthopaedic Surgery
DX: M75.121 Complete rotator cuff tear or rupture of right shoulder, not specified as traumatic (principal); M19.011 Primary osteoarthritis, right shoulder; M75.41 Impingement syndrome of right shoulder; M24.111 Other articular cartilage disorders, right shoulder; I10 Essential (primary) hypertension; Z87.442 Personal history of urinary calculi; Z98.890 Other specified postprocedural states; F17.210 Nicotine dependence, cigarettes, uncomplicated; Z79.1 Long term (current) use of non-steroidal anti-inflammatories (NSAID); Z79.899 Other long term (current) drug therapy
CPT/HCPCS: 64415; 76942; 29827; 29826; 29824; C1713 ×2; C1894; J2250; J0330; J1100; J2710; J0690; J2405; J0171; J3010; J2795; J2704; J2001

== ENCOUNTER → 2022-09-21 | Outpatient (CLI) | payer OTHER ==
[2022-09-21 15:02] LABS: Basophils # (A) 0.06 X 10*3/uL (0.00-0.10); Basophils % (A) 1.2 %; Eosinophils # (A) 0.08 X 10*3/uL (0.04-0.35); Eosinophils % (A) 1.6 %; HCT 45.6 % (39.6-50.0); Immature Grans, Automated 0.2 %; Lymphocytes # (A) 1.83 X 10*3/uL (0.90-5.00); MCH 29.4 pg (27.0-32.0); MCHC 32.9 g/dL (32.0-37.0); MCV 89.4 fL (80.0-97.0); Mean Platelet Volume 9.9 fL (9.5-12.2); Monocytes # (A) 0.61 X 10*3/uL (0.20-1.00); Monocytes % (A) 12.3 %; NRBC Per 100 WBC 0 /100 WBCS (0.0-0.0); Neutrophils # (A) 2.35 X 10*3/uL (1.80-7.70); Neutrophils % (A) 47.7 %; Platelet Count 350 X 10*3/uL (140-440); RDW 12.4 % (11.5-14.5); WBC 4.94 X 10*3/uL (4.50-10.00)
[2022-09-21 15:26] LABS: African American GFR (CKD) 130.4 (60.0-200.0); Anion Gap 12.9 mmol/L (10.00-18.00); BUN/Creat Ratio 21.26 Ratio (12.00-20.00); Blood Urea Nitrogen 17.9 mg/dL (9.0-27.0); Calcium 10.5 mg/dL (8.7-10.3); Carbon Dioxide 27.5 mmol/L (20.0-27.5); Non-African American GFR(CKD) 112.5 (60.0-200.0); Potassium 4.6 mmol/L (3.5-5.5)
[2022-09-22 05:25] LABS: Appearance,Urine Turbid (Clear); Bilirubin,Urine Negative (Negative); Blood,Urine Moderate (Negative); Color,Urine Yellow (Yellow); Ketones,Urine Negative (Negative); Nitrite,Urine Negative (Negative); Specific Gravity,Urine 1.022 (1.001-1.030)
[2022-09-22 05:31] LABS: Amorphous Sediment,Urine Present /LPF (None Seen); Bacteria,Urine None Seen /HPF (None Seen)
== END | disposition home or self-care (01) ==
LOC: LABPAT 10:11
PROVIDERS: ATTEND Urology
DX: Z01.812 Encounter for preprocedural laboratory examination (principal); N20.1 Calculus of ureter; R31.0 Gross hematuria
CPT/HCPCS: 36415; 80048; 81001; 85025; 87086

== ENCOUNTER 2022-09-28 09:34 | Day surgery (SDC) | payer OTHER ==
--- NOTE | 2022-09-28 09:18 | P.HPIHPCON ---
History of Present Illness H&P Date: 09/28/22 Chief Complaint: Left ureteral stone This is a 37-year-old male with history of 9 millimeter left-sided midureteral stone, he is symptomatic from his stone. Option of left-sided ureteroscopy vs ESWL with laser was discussed. He agreed to proceed with left-sided ureterosco py with holmium laser, Risk of bleeding infection injury to the ureter was discussed in detail Consent for Procedure: I have explained the operation/procedure to the patient, including the risks, benefits, side effects, alternative therapies (including not receiving the proposed treatment or service), the likelihood of the patient achieving his/her goals, and potential recuperation problems for the procedure/sedation/analgesia, as well as any blood products, if indicated. I also explained to the patient the risks, benefits and side effects of the alternatives, as well as the risks related to not receiving the proposed procedure, care, treatment, or services. Past Medical History Past Medical History: Hypertension, Musculoskeletal Disorder Additional Past Medical History / Comment(s): doesn't take any med for hypertension, hx kidney stones, tinnitis History of Any Multi-Drug Resistant Organisms: None Reported Past Surgical History: Orthopedic Surgery Additional Past Surgical History / Comment(s): Multiple right shoulder surgeries, left knee arthroscopy. recent arthroscopy right shoulder in July Past Anesthesia/Blood Transfusion Reactions: No Reported Reaction Additional Past Anesthesia/Blood Transfusion Reaction / Comment(s): no blood tx Smoking Status: Current every day smoker - Past Family History Father Family Medical History: Cancer Medications and Allergies Home Medications Medication Instructions Recorded Confirmed Type Dextroamphetamine/Amphetamine 20 mg PO DAILY 03/19/20 09/23/22 History [Adderall] Duloxetine (Unknown Dose) 1 tab PO BID 01/21/21 09/23/22 History HYDROcodone/APAP 5-325MG [[place] 1 tab PO Q6HR PRN #28 tab 01/28/21 09/23/22 Rx 5-325] Antidepressant(Unknown Name) 1 tab PO DAILY 09/23/22 09/23/22 History Allergies Allergy/AdvReac Type Severity Reaction Status Date / Time No Known Allergies Allergy Verified 09/23/22 16:01 Surgical - Exam - General no distress, moderate pain - Eyes normal ocular movement, no pale - ENT normal nares, normal mucosa - Respiratory normal expansion, normal respiratory effort - Abdomen Abdomen: soft, non tender Assessment and Plan Assessment: Or for left-sided ureteroscopy, holmium laser lithotripsy, stone basketing and stent insertion
[~2022-09-28 09:34] MED LIST changes: -METOCLOPRAMIDE 5 MG/ML 2 ML VIAL IVP PRN; +MIDAZOLAM 2 MG/2 ML VIAL IV PRN
[2022-09-28] MEDS ORDERED: LIDOCAINE 2% INJ 20 MG/ML (2 ML VIAL) ONE (11:02)
[2022-09-28] MEDS ORDERED: PROPOFOL 10 MG/ML 20 ML VIAL IV ONE (11:02)
[2022-09-28] MEDS ORDERED: fentaNYL (PF) 50 MCG/ML 2 ML AMP ONE (11:02)
[2022-09-28] MEDS ORDERED: MIDAZOLAM 2 MG/2 ML VIAL ONE (11:02)
[2022-09-28] MEDS ORDERED: KETOROLAC 15 MG/ML 1 ML VIAL ONE (11:02)
[2022-09-28] MEDS ORDERED: SUCCINYLCHOLINE CHLORIDE 200 MG/10 ML VIAL IV ONE (11:02)
--- NOTE | 2022-09-28 12:16 | P.OP ---
Date of Procedure: 09/28/22 Preoperative Diagnosis: Left ureteral stone Postoperative Diagnosis: Same Procedure(s) Performed: Cystoscopy, left ureteroscopy, holmium laser lithotripsy, stone basketing and stent insertion Implants: 6-Kazakh by 28 cm stent in the left ureter or left on a string Anesthesia: BALDO Surgeon: Bill Moseley Estimated Blood Loss (ml): 5 Pathology: none sent Condition: stable Disposition: PACU Indications for Procedure: This is a 37-year-old male with history of 9 millimeter left-sided midureteral stone, he is symptomatic from his stone. Option of left-sided ureteroscopy vs ESWL with laser was discussed. He agreed to proceed with left-sided ureteros copy with holmium laser, Risk of bleeding infection injury to the ureter was discussed in detail Operative Findings: Left midureteral stone Description of Procedure: Patient brought to the operating room, general anesthesia was induced. He was prepped and draped in sterile fashion and placed in dorsal lithotomy position. Cystoscopy fitted with 21-Kazakh sheath was inserted per urethra, cystoscopy was performed which showed no abnormality within the bladder. Attention was then carried to the left ureteral orifice. A semirigid ureteroscope was advanced through the urethra and advanced up the left ureteral orifice, a stone was encountered in the mid ureter. Using the holmium laser the stone was fragmented, stone fragments were removed using the stone basket. At this time the ureteroscope was advanced all the way up to the UPJ which showed no additional stones or fragments. Pullback ureteroscopy was performed which showed no injury to ureter or any sizable fragments. As ureteroscope was withdrawn a sensor wire was advanced through a. The semirigid ureteroscope was passed over the wire, the proximal curl was visualized on fluoroscopy and the distal curl was visualized using cystoscope. The bladder was emptied and the case. Patient stent was left on a string and taped to his penis out. Specimen could not be retrieved as it was all suctioned into the suction due to faulty filter within the drape. The patient was awakened from anesthesia and taken to recovery in stable condition
[2022-09-28 12:29] VITALS: TEMP 96.8
--- NOTE | 2022-09-28 12:29 | XR ---
EXAMINATION TYPE: XR KUB DATE OF EXAM: 09/28/2022 COMPARISON: NONE HISTORY: Preop TECHNIQUE: One view abdominal series FINDINGS: The osseous structures are intact. The bowel gas pattern is nonspecific. No definite calcifications overlying the right or left renal outline. There is a sclerotic density overlying the sacrum may repr esent a bone island. Stable from 10/08/2002. Calcification right hemipelvis appears vascular. There is a linear calcification the left hemipelvis measuring diameter of 1 mm. This is nonspecific. IMPRESSION: 1. Nonspecific abdomen.
--- NOTE | 2022-09-28 12:33 | FL ---
EXAMINATION TYPE: FL guidance operating room DATE OF EXAM: 09/28/2022 HISTORY: Fluoroscopy time Total dose area product (DAP) in mGy*cm? (or similar): 0.60245 IMPRESSION: 1. Fluoroscopy time.
[2022-09-28] MEDS ORDERED: HYDROcodone/APAP 5-325MG 1 EACH TAB ONE (13:31)
[2022-09-28 13:39] VITALS: RESP 16
[2022-09-28 13:58] VITALS: BP 135/82; PULSE 64
== END 2022-09-28 14:10 | disposition home or self-care (01) ==
LOC: OR 09:34
PROVIDERS: ATTEND Urology
DX: N20.1 Calculus of ureter (principal); I10 Essential (primary) hypertension; F17.210 Nicotine dependence, cigarettes, uncomplicated; M62.9 Disorder of muscle, unspecified; Z79.899 Other long term (current) drug therapy
CPT/HCPCS: 74018; 52356; C2625; C1769; J2250; J0330; J1100; J0690; J2405; J3010; J1885; J2704; J2001

== ENCOUNTER 2023-01-03 11:17 | Emergency (ER) | payer OTHER ==
[2023-01-03] MEDS ORDERED: BUPIVACAINE (PF) 0.5% 30 ML VIAL SQ STA (11:46)
--- NOTE | 2023-01-03 12:06 | ED ---
Upper Extremity HPI - General Chief Complaint: Extremity Injury, Upper Stated Complaint: rt hand finger injury - [facility] Time Seen by Provider: 01/03/23 11:23 Source: patient Mode of arrival: ambulatory Limitations: no limitations - History of Present Illness Initial Comments: This is a [id number] 37-year-old male who comes the ER complaining of pain to his right middle finger. Pain mostly at the DIP joint. Patient states he was using a wrench and a bowl gave way and struck his finger. Patient complaining of pain which is exacerbated by movement. No other injuries. No headache, no fever or chills, no changes in vision or hearing, no sore throat or difficulty with speech, no neck pain, no chest pain or shortness of breath, no abdominal pain, no nausea or vomiting, no changes in urination or bowel movements, no numbness or tingling,, no skin rashes or lesions. Past medical, surgical, social, and family history reviewed. MD Complaint: Injury to:: finger Onset/Timin -: hour(s) Other Extremity Injury: Fingers: Right (Right middle finger injury) - Related Data Home Medications Medication Instructions Recorded Confirmed Dextroamphetamine/Amphetamine 20 mg PO DAILY 03/19/20 09/28/22 [Adderall] Duloxetine (Unknown Dose) 1 tab PO BID 01/21/21 09/28/22 Antidepressant(Unknown Name) 1 tab PO DAILY 09/23/22 09/28/22 Previous Rx's Medication Instructions Recorded HYDROcodone/APAP 5-325MG [[place] 1 tab PO Q6HR PRN #28 tab 01/28/21 5-325] Ketorolac [Toradol] 10 mg PO Q6HR PRN #15 tab 09/28/22 Allergies Allergy/AdvReac Type Severity Reaction Status Date / Time No Known Allergies Allergy Verified 01/03/23 11:31 Review of Systems ROS Statement: Those systems with pertinent positive or pertinent negative responses have been documented in the HPI. ROS Other: All systems not noted in ROS Statement are negative. Past Medical History Past Medical History: Hypertension Additional Past Medical History / Comment(s): hx kidney stones tinnitis History of Any Multi-Drug Resistant Organisms: None Reported Past Surgical History: Orthopedic Surgery Additional Past Surgical History / Comment(s): Multiple right shoulder surgeries, left knee arthroscopy. left shoulder. Past Anesthesia/Blood Transfusion Reactions: No Reported Reaction Additional Past Anesthesia/Blood Transfusion Reaction / Comment(s): no blood tx Past Psychological History: ADD/ADHD, Anxiety, Depression Smoking Status: Current every day smoker Past Alcohol Use History: None Reported Past Drug Use History: None Reported - Past Family History Father Family Medical History: Cancer General Exam Limitations: no limitations General appearance: alert, in no apparent distress Head exam: Present: atraumatic, normocephalic, normal inspection Eye exam: Present: normal appearance, EOMI ENT exam: Present: normal exam Neck exam: Present: normal inspection, full ROM Respiratory exam: Present: normal lung sounds bilaterally. Absent: respiratory distress, wheezes, rales, rhonchi, stridor Cardiovascular Exam: Present: regular rate, normal rhythm, normal heart sounds. Absent: systolic murmur, diastolic murmur, rubs, gallop, clicks GI/Abdominal exam: Absent: distended Right Forearm Wrist exam: Present: normal inspection, full ROM. Absent: tenderness Hand Wrist exam: Present: tenderness, other (Patient has tenderness to the right middle finger mainly at the PIP. Reduced range of motion. Distal sensation intact. Capillary refill less than 2 seconds. Remainder of the phalanges and hand seemed to be unaffected.). Absent: full ROM, swelling Neuro motor exam: Present: wrist extension intact, thumb opposition intact, thumb IP flexion intact, thumb adduction intact Neurosensory exam: Present: 2-point discrimination, radial nerve intact, ulnar nerve intact, median nerve intact Vascular: Present: normal capillary refill. Absent: vascular compromise, Pallo, pulse deficit radial art, pulse deficit ulnar art, pulse deficit brachial art Back exam: Present: normal inspection Neurological exam: Present: alert, oriented X3, CN II-XII intact Psychiatric exam: Present: normal affect, normal mood Course Vital Signs 01/03/23 11:29 Temperature 98.2 F Pulse Rate 90 Respiratory 18 Rate Blood Pressure 126/80 O2 Sat by Pulse 100 Oximetry Procedures - Procedures Initial comment: Digital block performed on the right middle finger with 0.5% Marcaine, 27-gauge needle, 3 mL of anesthetic. Patient tolerated well. Adequate anesthesia. No adverse events. Reduction of DIP dislocation, right middle finger by me. Using traction was successful. Patient had full range of motion and tendon strength afterwards. Splint applied. Distal neurovascular status intact. I did consider post reduction x-rays however did not feel this would change course or disposition the patient. We'll have the patient follow-up with [facility]. X-rays deferred to shared decision-making. Medical Decision Making - Medical Decision Making Was pt. sent in by a medical professional or institution? @ -[by , PA, DELIVERY CREW MEMBER, urgent care, hospital, or senior living] Did you speak to anyone other than the patient for history? @ -[EMS, parent, family, police, friend?] Did you review nursing and triage notes? @ -[agree or disagree, why?] Were old charts reviewed? @ -[outside hosp., previous admissions, EMS record, old EKG, old radiological studies, urgent care reports/EKGs, senior living records?] Differential Diagnosis? @ Differential diagnosis includes but not limited to: Right middle finger fracture, dislocation, sprain, does not appear to be consistent with vascular insult. Not consistent with infectious insult. EKG interpreted by me (3pts min.)? @ -[none] X-rays interpreted by me (1pt min.)? @ -Independent interpretation ED course CT interpreted by me (1pt min.)? @ -[none] U/S interpreted by me (1pt. min.)? @ -[none] What testing was considered but not performed? (CT, X-rays, U/S, labs)? Why? @I did consider post reduction films but did not feel this would change course or disposition the patient. What meds were considered but not given? Why? @ -[none] Did you discuss the management of the patient with other professionals? @ -The case was discussed in detail with ED attending physician. Presentation, findings, treatment plan discussed in detail. Did you reconcile home meds? @ -[none] Was smoking cessation discussed for >3mins.? @ -Smoking cessation discussed for greater than 3 minutes. Information given. Risks, benefits, treatments discussed. Patient voiced understanding Was critical care preformed (if so, how long)? @ -None Were there social determinants of health that impacted care today? How? (Homelessness, low income, unemployed, alcoholism, drug addiction, transportation, low edu. Level, literacy, decrease access to med. care, senior care, rehab)? @ -Cigarette smoking Was there de-escalation of care discussed even if they declined? (Discuss DNR or withdrawal of care, Hospice)? @ -[Discuss DNR or withdrawal of care, Hospice?] What co-morbidities impacted this encounter? (DM, HTN, Smoking, COPD, CAD, Cancer, CVA, Hep., AIDS, mental health diagnosis, sleep apnea, morbid obesity)? @ -Cigarette smoking Was patient admitted / discharged? @ -Stable, improved Undiagnosed new problem with uncertain prognosis? @ -Unlikely to posterior to life or bodily function Drug Therapy requiring intensive monitoring for toxicity (Heparin, Nitro, Insulin, Cardizem)? @ -[none] Were any procedures done? @ -Digital block, closed reduction, dislocation distal interphalangeal joint right middle finger Diagnosis/symptom? @ -DIP dislocation, right middle finger Acute, or Chronic, or Acute on Chronic? @ -Acute Uncomplicated (without systemic symptoms) or Complicated (systemic symptoms)? @ -Relatively uncomplicated Side effects of treatment? @ -[none] Exacerbation, Progression, or Severe Exacerbation] @ -[no] Poses a threat to life or bodily function? @ -[no] - Radiology Data Radiology results: report reviewed, image reviewed Patient has a dorsal dislocation of the DIP on plain film interpretation performed independently by me. Disposition Clinical Impression: Dislocation of distal interphalangeal joint of right middle finger, initial encounter, Nicotine addiction Disposition: HOME SELF-CARE Condition: Good Instructions (If sedation given, give patient instructions): How to Stop Smoking (ED), Splint Care (ED), Finger Dislocation (ED) Additional Instructions: Follow-up with [facility] as directed. 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 Alternatively he could follow-up with the orthopedic physician, Dr. Mariano Return to the ER immediately if any symptoms worsen, new symptoms arise, or any other problems develop. Use [id number] acetaminophen and/or ibuprofen for general pain control. Apply ice 20 minutes on and off for times daily. [facility] [employer] [facility] OCC[facility]IC[facility] [address] [place] [phone] Get Directions Hours TUESDAY: 8 a.m. - 5 p.m. TUESDAY: 8 a.m. - 5 p.m. TUESDAY: 8 a.m. - 5 p.m. TUESDAY: 8 a.m. - 5 p.m. TUESDAY: 8 a.m. - 5 p.m. Is patient prescribed a controlled substance at d/c from ED?: No When asked, does pt state using other controlled substances?: No If prescribed controlled substance>3 days was MAPS reviewed?: No Referrals: Mariann Mariano DO [Doctor of Osteopathic Medicine] - 1-2 days Time of Disposition: 13:34
--- NOTE | 2023-01-03 13:22 | XR ---
EXAMINATION TYPE: XR finger RT DATE OF EXAM: 01/03/2023 COMPARISON: NONE HISTORY: pain TECHNIQUE: Three views are submitted. FINDINGS: The osseous structures are intact. There is a DIP joint complete dislocation of the distal phalanx do rsally. IMPRESSION: 1. Dorsal dislocation of the distal phalanx relative to the middle phalanx third digit. No definite a cute fracture.
[2023-01-03 14:01] VITALS: BP 132/82; PULSE 73; RESP 16; TEMP 98
== END 2023-01-03 14:09 | disposition home or self-care (01) ==
LOC: EC 11:17
DX: S63.282A Dislocation of proximal interphalangeal joint of right middle finger, initial encounter (principal); F17.200 Nicotine dependence, unspecified, uncomplicated; I10 Essential (primary) hypertension; F41.9 Anxiety disorder, unspecified; F32.A Depression, unspecified; Z79.899 Other long term (current) drug therapy; W23.1XXA Caught, crushed, jammed, or pinched between stationary objects, initial encounter
CPT/HCPCS: 99283; 99406; 26725; 73140; J0665

== ENCOUNTER → 2023-11-15 | Outpatient (CLI) | payer OTHER ==
--- NOTE | 2023-11-20 21:35 | MR ---
EXAMINATION TYPE: MR knee LT wo con DATE OF EXAM: 11/15/2023 COMPARISON: Prior left knee MRI January 11, 2020. Outside left knee x-ray November 09, 2023 HISTORY: Left knee pain and swelling x3 weeks, Hx knee surgery meniscus repair 2020 TECHNIQUE: Multiplanar, multisequence images of the knee is performed without IV contrast. FINDINGS: MEDIAL MENISCUS: Persistent oblique signal posterior horn extends to inferior articular surface simil ar to prior. LATERAL MENISCUS: Anterior and posterior horns are intact without tear. CRUCIATE LIGAMENTS: The anterior and posterior cruciate ligaments are intact and unremarkable. COLLATERAL LIGAMENTS: The medial collateral ligament and lateral collateral ligament complex are inta ct and unremarkable. EXTENSOR MECHANISM: Visualized quadriceps and patellar tendons are intact. EFFUSION: No significant suprapatellar joint effusion. POPLITEAL CYST: Small size popliteal/gonzales cyst is present. TRICOMPARTMENT SPACES: Mild to moderate compartment joint space loss with mild spurring. CARTILAGE: Tricompartmental articular cartilage is preserved. BONE MARROW SIGNAL: No focal abnormal marrow signal is appreciated. OTHER: No additional significant abnormality is appreciated. IMPRESSION: 1. Persistent abnormal oblique signal posterior horn medial meniscus suspicious for full-thickness te ar. 2. Mild to borderline moderate high compartment degenerative changes as detailed above slightly progr essed from 2020 MRI. 3. Small popliteal cyst is now present.
== END | disposition home or self-care (01) ==
LOC: RADMRIMAIN 18:44
PROVIDERS: ATTEND Orthopaedic Surgery
DX: M17.12 Unilateral primary osteoarthritis, left knee (principal); M71.22 Synovial cyst of popliteal space [Baker], left knee

== ENCOUNTER → 2023-12-02 | Outpatient (CLI) | payer OTHER ==
[2023-12-02 15:34] LABS: Blood Urea Nitrogen 19.6 mg/dL (9.0-27.0); Calcium 9.4 mg/dL (8.7-10.3); Carbon Dioxide 24.4 mmol/L (21.6-31.8); Chloride 106 mmol/L (96-109); Glucose 95 mg/dL (70-110); Potassium 5.1 mmol/L (3.5-5.5); Sodium 141 mmol/L (135-145)
[2023-12-02 15:47] LABS: Basophils # (A) 0.07 X 10*3/uL (0.00-0.10); Basophils % (A) 1.4 %; Eosinophils # (A) 0.16 X 10*3/uL (0.04-0.35); Eosinophils % (A) 3.1 %; HGB 15.3 g/dL (13.0-17.0); Lymphocytes # (A) 1.41 X 10*3/uL (0.90-5.00); Lymphocytes % (A) 27.3 %; MCH 30.5 pg (27.0-32.0); MCHC 33.3 g/dL (32.0-37.0); MCV 91.6 FL (80.0-97.0); Mean Platelet Volume 10.4 FL (9.5-12.2); Monocytes # (A) 0.52 X 10*3/uL (0.20-1.00); Monocytes % (A) 10.1 %; NRBC Per 100 WBC 0 X 10*3/uL (0.00-0.01); Neutrophils % (A) 57.9 %; Platelet Count 278 X 10*3/uL (140-440); RBC 5.02 X 10*6/uL (4.40-5.60); RDW 12.5 % (11.5-14.5); WBC 5.17 X 10*3/uL (4.50-10.00)
== END | disposition home or self-care (01) ==
LOC: LABPAT 08:02
PROVIDERS: ATTEND Orthopaedic Surgery
DX: Z01.812 Encounter for preprocedural laboratory examination (principal); M23.92 Unspecified internal derangement of left knee
CPT/HCPCS: 80048; 85025

== ENCOUNTER 2023-12-16 08:11 | Day surgery (SDC) | payer OTHER ==
[2023-12-14 15:03] VITALS: BMI 22.4
--- NOTE | 2023-12-15 08:29 | P.HPOR ---
History of Present Illness H&P Date: 12/15/23 Chief Complaint: Left knee pain The patient is a 38-year-old male who presents with left knee pain after an injury in October of this year. His knee gave out causing him to fall. He had pain ever since. He is having giving way and locking. He notes pain with weightbearing activities. He has tried medications in addition to injections without much relief. Review of Systems As per HPI Past Medical History Past Medical History: Hypertension Additional Past Medical History / Comment(s): Hx kidney stones ,tinnitis History of Any Multi-Drug Resistant Organisms: None Reported Past Surgical History: Orthopedic Surgery Additional Past Surgical History / Comment(s): Multiple right shoulder surgeries, left knee arthroscopy. left shoulder. Past Anesthesia/Blood Transfusion Reactions: No Reported Reaction Additional Past Anesthesia/Blood Transfusion Reaction / Comment(s): no blood tx Smoking Status: Current every day smoker - Past Family History Father Family Medical History: Cancer Medications and Allergies Home Medications Medication Instructions Recorded Confirmed Type Dextroamphetamine/Amphetamine 20 mg PO DAILY 03/19/20 12/14/23 History [Adderall] Duloxetine (Unknown Dose) 1 tab PO BID 01/21/21 12/14/23 History QUEtiapine [SEROquel] 50 mg PO HS 12/14/23 12/14/23 History Allergies Allergy/AdvReac Type Severity Reaction Status Date / Time No Known Allergies Allergy Verified 12/14/23 14:52 Physical Examination - Knee left Effusion grade: trace Tenderness with palpation: anterior, medial Pain: throughout ROM Gait: limping ROM: extension: -10 degrees ROM: flexion: 140 degrees Crepitus with motion: Yes Strength: extension: 5/5 Strength: flexion: 5/5 Meniscal tests: medial meniscal tests: positive, medial joint line pain: positive Results The patient is well-developed well-nourished male approximately 6 foot 1, 170 pounds of mesomorphic habitus. HEENT exam is nonfocal, neck is supple. He has painless passive motion of the left hip. Straight leg raise is negative. He is tender about the medial joint line of the left knee. Collaterals are stable, Hanna was negative, Erick's elicits medial pain. His distal neurovascular appears intact in the left lower extremity. - Diagnostic results Knee MRI: image reviewed (MRI of the left knee obtained previously shows evidence of a posterior medial meniscal tear.) Assessment and Plan Assessment: Left knee symptomatic medial meniscal tear Plan: I talked to the patient at length regarding his condition along with treatment options. At this point is quite symptomatic having pain and mechanical symptoms despite attempted conservative measures. After a through discussion he opts to proceed with surgery. We'll plan to proceed with left knee arthroscopy with probable partial medial meniscectomy. Risks and benefits were discussed at length in layman's terms. We will likely perform that as an outpatient procedure.
[~2023-12-16 08:11] MED LIST changes: -DEXAMETHASONE SOD PHOSPHATE 4 MG/ML 1 ML VIAL IV ONE; -HYDROmorphone 0.5 MG/0.5 ML SYRINGE IVP PRN; -LACTATED RINGERS 1,000 ML IV SCH; -ONDANSETRON 4 MG/2 ML VIAL IVP ONE; +ceFAZolin 3 GM in SODIUM CHLORIDE 0.9% 100 ML IVPB PRN
[2023-12-16] MEDS: IV FLUID CONTINUATION 1,000 ML IV ONE (08:44)
[2023-12-16] MEDS: DEXAMETHASONE SOD PHOSPHATE 4 MG/ML 1 ML VIAL IV ONE (09:05)
[2023-12-16] MEDS: LACTATED RINGERS 1,000 ML IV SCH (09:05)
[2023-12-16] MEDS: ONDANSETRON 4 MG/2 ML VIAL IVP ONE (09:05)
[2023-12-16] MEDS ORDERED: LIDOCAINE 1% INJ 10MG/ML (20 ML MDV) ONE (10:19)
[2023-12-16] MEDS ORDERED: DEXAMETHASONE SOD PHOSPHATE 10 MG/ML 1 ML VIAL ONE (10:19)
[2023-12-16] MEDS ORDERED: MIDAZOLAM 2 MG/2 ML VIAL ONE (10:19)
[2023-12-16] MEDS ORDERED: PROPOFOL 10 MG/ML 20 ML VIAL IV ONE (10:19)
[2023-12-16] MEDS ORDERED: fentaNYL (PF) 50 MCG/ML 2 ML AMP ONE (10:19)
[2023-12-16] MEDS: EPINEPHrine (PF) 1 ML in SODIUM CHLORIDE 0.9% IRRIGATIO 3,000 ML IRRIGATION ONE (10:46)
--- NOTE | 2023-12-16 11:21 | P.OP ---
Date of Procedure: 12/16/23 Preoperative Diagnosis: Left knee internal derangement Postoperative Diagnosis: Left knee posterior medial meniscal tear Procedure(s) Performed: Left knee arthroscopic partial medial meniscectomy Anesthesia: ELLENA Surgeon: David Peters Estimated Blood Loss (ml): 10 Pathology: none sent Condition: stable Disposition: PACU Indications for Procedure: The patient is a 38-year-old male who presents with left knee pain and mechanical symptoms after previous twisting injury. A discussion of the risks and benefits of operative intervention versus conservative measures was made with the patient. He opted to proceed with surgery. Operative risks include infection, neurovascular injury, development of blood clots, possible incomplete resolution of symptoms, possible worsening of symptoms and need for subsequent procedures was discussed. Informed consent was obtained. Operative Findings: As below Description of Procedure: The patient was brought to the operating room, and after induction of general anesthesia examined the left knee. Collaterals were stable, Hanna was negative, and posterior drawer was negative. The left lower extremity was prepped and draped in a normal fashion. A superior lateral portal was made through a 3 mm skin incision superior and lateral to the patella. This was used for outflow. A lateral portal was made through a 5 mm vertical skin incision lateral to the patella tendon above the joint line. Diagnostic arthroscopy was performed. On inspection of the medial compartment, a complex macerated tear involving the posterior horn of the medial meniscus in the white-red junction was noted. This was debrided back to stable base with straight baskets and a motorized shaver. The remaining medial meniscus was stable and intact. There was grade 2 chondral changes involving the posterior lateral portion of the medial femoral condyle. On inspection of the notch, the anterior cruciate ligament appeared to be intact. On inspection of the lateral compartment, no significant meniscal or cartilage pathology was noted. On inspection of the patellofemoral articulation, mild chondral fibrillation was present. The gutters were clear debris. The knee was then thoroughly irrigated. The portals were closed with Steri-Strips. A sterile dressing was applied in addition to a compression stocking. The patient was awoken from general anesthesia and transferred to recovery room in good condition. Blood loss was estimated at 10 mL. No complications were incurred.
[2023-12-16 11:28] VITALS: TEMP 97
[2023-12-16] MEDS: HYDROmorphone 0.5 MG/0.5 ML SYRINGE IVP PRN (11:44)
[2023-12-16] MEDS: HYDROcodone/APAP 5-325MG 1 EACH TAB PO STA (13:11)
[2023-12-16 14:07] VITALS: BP 110/64; PULSE 64; RESP 14
== END 2023-12-16 14:22 | disposition home or self-care (01) ==
LOC: OR 08:11
PROVIDERS: ATTEND Orthopaedic Surgery
DX: S83.232A Complex tear of medial meniscus, current injury, left knee, initial encounter (principal); I10 Essential (primary) hypertension; F17.200 Nicotine dependence, unspecified, uncomplicated; F90.9 Attention-deficit hyperactivity disorder, unspecified type; F32.A Depression, unspecified; F41.9 Anxiety disorder, unspecified; W19.XXXA Unspecified fall, initial encounter; Z80.9 Family history of malignant neoplasm, unspecified; Z79.899 Other long term (current) drug therapy
CPT/HCPCS: 29881; J2250; J1100 ×2; J0690; J2405; J0171; J2001; J3010; J2704; J1170